=== PATIENT | female | born 1970 | race Caucasian/White ===

== ENCOUNTER → 2025-06-30 19:28 | Outpatient (REF) | payer BC, SELFPAY | LOC: WDC 19:28 | PROVIDERS: ATTENDING PHYSICIAN Registered Nurse; FAMILY PHYSICIAN Family Medicine | DX: Z12.31 Encounter for screening mammogram for malignant neoplasm of breast (principal) | CPT/HCPCS: 77063; 77067 ==

== ENCOUNTER → 2025-07-22 13:52 | Outpatient (REF) | payer BC, SELFPAY | LOC: RAD 13:52 | PROVIDERS: ATTENDING PHYSICIAN Registered Nurse; FAMILY PHYSICIAN Family Medicine | DX: E28.39 Other primary ovarian failure (principal) | CPT/HCPCS: 77080 ==